=== PATIENT | female | born 1985 | race Caucasian/White ===

== ENCOUNTER 2018-10-27 12:02 | Emergency (ER) | payer OTHER ==
[2018-10-27] MEDS ORDERED: NS 500 ML IV ONE (12:19)
--- NOTE | 2018-10-27 12:25 | EDPHY ---
H & P Stated Complaint: 4 days cp/sob Time Seen by Provider: 10/27/18 12:19 HPI/ROS: HPI: This is a 32-year-old female who presents with Chief Complaint: Chest pain and shortness of breath x4 days Location: Chest Quality: Pain and dyspnea Duration: 4 days Signs and Symptoms: no shortness of breath at rest, no shortness of breath on exertion, no cough, + chest pain, + palpitations, no lower extremity edema, no wheezing, no orthopnea, no paroxysmal nocturnal dyspnea, no fever, no injury/ trauma, no hemoptysis, no carpal pedal spasms Timing: Acute, worse today Severity: Moderate to severe Context: Patient has a history of depression anxiety and reports 4 day history of left-sided chest pain that is nonradiating in nature and accompanied by shortness of breath today. She reports that the pain became very intense today. She reports that has remained constant for the last 4 days. She denies any recent long distance travel, hormone therapy and is a nonsmoker. Patient reports that she is eating and drinking normally. She is right-hand dominant denies any heavy lifting or excessive exercise. Denies nausea, vomiting, diaphoresis. No family history of cardiac issues. No recent upper respiratory symptoms or viral symptoms. Modifying Factors: None Comment: ROS: A comprehensive 10 system review of systems is otherwise negative aside from elements mentioned in the history of present illness. MEDICAL/SURGICAL/SOCIAL HISTORY: Medical history: Depression and anxiety. LMP 1-2 weeks ago. Surgical history: Denies Social history: Works as a clinical psychiatrist. CONSTITUTIONAL: Anxious, keeping eyes closed, right hand on left side of chest , awake and alert, no obvious distress HEENT: Atraumatic and normocephalic, PERRL, EOMI. Nares patent; no rhinorrhea; no nasal mucosal edema. Tympanic membranes clear. Oropharynx clear, no exudate and moist pink mucosa. Airway patent. No lymphadenopathy. No meningismus. Cardiovascular: Normal S1/S2, regular rate, regular rhythm, without murmur rub or gallop. PULMONARY/CHEST: Symmetrical and nontender. Clear to auscultation bilaterally. Good air movement. No accessory muscle usage. ABDOMEN: Soft, nondistended, nontender, no rebound, no guarding, no peritoneal signs, no masses or organomegaly. No CVAT. EXTREMITIES: 2/2 pulses, strength 5/5, no deformities, no clubbing, no cyanosis or edema. NEUROLOGICAL: no focal neuro deficits. GCS 15. SKIN: Warm and dry, no erythema. no rash. Good capillary refill. Source: Patient Exam Limitations: No limitations - Personal History LMP (Females 10-55): 8-14 Days Ago Current Tetanus Diphtheria and Acellular Pertussis (TDAP): Unsure - Medical/Surgical History Hx Asthma: No Hx Chronic Respiratory Disease: No Hx Diabetes: No Hx Cardiac Disease: No Hx Renal Disease: No Hx Cirrhosis: No Hx Alcoholism: No Hx HIV/AIDS: No Hx Splenectomy or Spleen Trauma: No Other PMH: denies - Social History Smoking Status: Never smoked Constitutional: Initial Vital Signs Temperature (C) 36.6 C 10/27/18 12:05 Heart Rate 94 10/27/18 12:05 Respiratory Rate 18 10/27/18 12:05 Blood Pressure 131/95 H 10/27/18 12:05 O2 Sat (%) 100 10/27/18 12:05 O2 Delivery Mode Room Air Allergies/Adverse Reactions: No Known Allergies Allergy (Unverified 10/27/18 12:03) Home Medications: Medication Instructions Recorded FOCALIN 10/27/18 Lexapro 10/27/18 Medical Decision Making - Diagnostics Imaging Results: Imaging Impressions Chest X-Ray 10/27/18 12:20 Impression: Clear lungs. No pneumothorax or acute process. ED Course/Re-evaluation: Vital signs reviewed and stable upon arrival. Placed on operation specialist. EKG, chest x-ray, laboratory studies ordered Patient given 1 L normal saline 1225: EKG my read with attending shows normal sinus rhythm with PAC but no acute ischemic changes, no arrhythmias, no heart block. 1250: Notified by tech that troponin 0.00 1319: Labs reviewed. No signs of leukocytosis/anemia/platelet dysfunction/CUCA/ ACS/electrolyte imbalance/VTE. I Have no concern for pericarditis. 1320: This x-ray my read shows no signs of opacity, effusion, widened mediastinum, no pneumothorax. Chest pain has been occurring for the last 4 days. Second troponin not indicated. Patient is presenting with atypical chest pain most likely musculoskeletal versus anxiety. Referral to PCP which patient already has an appointment this afternoon. This patient was seen under the supervision of my secondary supervising physician. I evaluated care for this patient with attending. Discussed this patient with Dr. Regalado. Differential Diagnosis: Chest pain including but not limited to myocardial ischemia, pulmonary embolus, chest wall pain, pleural inflammation and pulmonary infectious causes. - Data Points Laboratory Results: Laboratory Results 10/27/18 12:30 10/27/18 12:30 10/27/18 10/27/18 10/27/18 12:34 12:30 12:30 WBC RBC Hgb Hct MCV MCH MCHC RDW Plt Count MPV Neut % (Auto) Lymph % (Auto) Tompkins % (Auto) Eos % (Auto) Baso % (Auto) Nucleat RBC Rel Count Absolute Neuts (auto) Absolute Lymphs (auto) Absolute Monos (auto) Absolute Eos (auto) Absolute Basos (auto) Absolute Nucleated RBC Immature Gran % Immature Gran # D-Dimer < 0.27 ug/mLFEU ug/mLFEU (0.00-0.50) Sodium Potassium Chloride Carbon Dioxide Anion Gap BUN Creatinine Estimated GFR Glucose Calcium POC Troponin I 0.00 ng/mL ng/mL (0.00-0.08) Beta HCG, Qual NEGATIVE 10/27/18 10/27/18 12:30 12:30 WBC 4.34 10^3/uL 10^3/uL (3.80-9.50) RBC 4.48 10^6/uL 10^6/uL (4.18-5.33) Hgb 13.9 g/dL g/dL (12.6-16.3) Hct 39.8 % % (38.0-47.0) MCV 88.8 fL fL (81.5-99.8) MCH 31.0 pg pg (27.9-34.1) MCHC 34.9 g/dL g/dL (32.4-36.7) RDW 12.2 % % (11.5-15.2) Plt Count 241 10^3/uL 10^3/uL (150-400) MPV 10.4 fL fL (8.7-11.7) Neut % (Auto) 67.3 % % (39.3-74.2) Lymph % (Auto) 25.6 % % (15.0-45.0) Tompkins % (Auto) 4.1 % L % (4.5-13.0) Eos % (Auto) 2.1 % % (0.6-7.6) Baso % (Auto) 0.7 % % (0.3-1.7) Nucleat RBC Rel Count 0.0 % % (0.0-0.2) Absolute Neuts (auto) 2.92 10^3/uL 10^3/uL (1.70-6.50) Absolute Lymphs (auto) 1.11 10^3/uL 10^3/uL (1.00-3.00) Absolute Monos (auto) 0.18 10^3/uL L 10^3/uL (0.30-0.80) Absolute Eos (auto) 0.09 10^3/uL 10^3/uL (0.03-0.40) Absolute Basos (auto) 0.03 10^3/uL 10^3/uL (0.02-0.10) Absolute Nucleated RBC 0.00 10^3/uL 10^3/uL (0-0.01) Immature Gran % 0.2 % % (0.0-1.1) Immature Gran # 0.01 10^3/uL 10^3/uL (0.00-0.10) D-Dimer Sodium 139 mEq/L mEq/L (135-145) Potassium 3.8 mEq/L mEq/L (3.5-5.2) Chloride 104 mEq/L mEq/L (97-110) Carbon Dioxide 23 mEq/l mEq/l (22-31) Anion Gap 12 mEq/L mEq/L (6-14) BUN 18 mg/dL mg/dL (7-23) Creatinine 0.7 mg/dL mg/dL (0.6-1.0) Estimated GFR > 60 Glucose 101 mg/dL H mg/dL (70-100) Calcium 9.4 mg/dL mg/dL (8.5-10.4) POC Troponin I Beta HCG, Qual Medications Given: Discontinued Medications Sodium Chloride (Ns) 500 mls @ 1,000 mls/hr IV EDNOW ONE PRN Reason: Protocol Stop: 10/27/18 12:48 Last Admin: 10/27/18 12:34 Dose: 500 mls Point of Care Test Results: Chemistry 10/27/18 12:34 POC Troponin I 0.00 ng/mL ng/mL (0.00-0.08) Departure - Departure Disposition: Home, Routine, Self-Care Clinical Impression: Atypical chest pain Condition: Good Instructions: Noncardiac Chest Pain (ED) Additional Instructions: Your chest pain today is not cardiac in nature. Take Tylenol 650 mg and/or ibuprofen 600 mg with food as needed for pain. Please keep your follow-up appointment with primary care provider i this afternoon. Referrals: Cordell Bright MD [Primary Care Provider] - As per Instructions
[2018-10-27 12:56] LABS: PLATELET COUNT 241 10^3/uL (150-400)
--- NOTE | 2018-10-27 13:16 | CPEKG ---
Test Reason : OPEN Blood Pressure : / mmHG Vent. Rate : 082 BPM Atrial Rate : 083 BPM P-R Int : 148 ms QRS Dur : 073 ms QT Int : 386 ms P-R-T Axes : 069 073 058 degrees QTc Int : 451 ms Sinus rhythm Atrial premature complex Confirmed by Eloy Regalado ([id number]) on 10/27/2018 1:15:44 PM Referred By: PHYSICIAN ED Confirmed By:Eloy Regalado
[2018-10-27 13:56] VITALS: BP 127/73
[2018-10-27 17:16] LABS: CREATINE KINASE 108 IU/L (0-156)
== END 2018-10-27 13:55 | disposition home or self-care (01) ==
DX: R07.9 Chest pain, unspecified (principal); E86.9 Volume depletion, unspecified; R06.02 Shortness of breath; F32.9 Major depressive disorder, single episode, unspecified; F41.9 Anxiety disorder, unspecified
CPT/HCPCS: 84484-ER